=== PATIENT | male | born 1935 | race Caucasian/White ===

== ENCOUNTER 2019-09-06 10:59 | Day surgery (SDC) | payer MEDICARE ==
[~2019-09-06] VITALS: Ht 182.9 cm; Wt 84.4 kg
[~2019-09-06 10:59] MED LIST: ATOR40TA78 PO; FINA5TAB4 PO; GLUC-117 PO; KRIL500C PO; MULT-658 PO; NIAC500T4 PO; [UNRECOGNIZED DRUG - CODE] PO
[2019-09-06] MEDS ORDERED: DOCU100C33 PO (11:46)
[2019-09-06] MEDS ORDERED: METO50TA4 PO (11:46)
[2019-09-06] MEDS ORDERED: LIDOCAINE-MPF 1%, 2ML ONE (11:46)
[2019-09-06] MEDS ORDERED: MULT-658 PO (11:46)
[2019-09-06] MEDS ORDERED: OMEP40CA6 PO (11:46)
[2019-09-06] MEDS ORDERED: ASCO500T7 PO (11:46)
[2019-09-06] MEDS ORDERED: AMLO10TA8 PO (11:46)
[2019-09-06] MEDS ORDERED: ALLO100T30 PO (11:46)
[2019-09-06] MEDS ORDERED: ATOR40TA78 PO (11:46)
[2019-09-06] MEDS ORDERED: DULO30CA2 PO (11:46)
[2019-09-06] MEDS ORDERED: LOSA100T14 PO (11:46)
[2019-09-06] MEDS ORDERED: FINA5TAB4 PO (11:46)
[2019-09-06] MEDS ORDERED: MAGN400T36 PO (11:46)
[2019-09-06] MEDS ORDERED: GABA300C10 PO (11:46)
[2019-09-06 11:47] VITALS: BP 182/105
[2019-09-06] MEDS ORDERED: LACTATED RINGERS 1,000 ML IV SCH (11:53)
[2019-09-06] MEDS ORDERED: DULO20CA45 PO (12:02)
[2019-09-06] MEDS ORDERED: OXYC10TA47 PO (12:07)
[2019-09-06 12:15] VITALS: BP 176/91
[2019-09-06 12:30] LABS: ALBUMIN 3.6 g/dL (3.4-5.0); ANION GAP 8 mmol/L (5-15); CALCIUM 9.3 mg/dL (8.5-10.1); CHLORIDE 109 mmol/L (98-107)
[2019-09-06] MEDS ORDERED: LIDOCAINE-MPF 1%, 2ML INFIL ONE (12:30)
[2019-09-06 12:33] LABS: ALANINE AMINOTRANSFERASE 25 U/L (12-78); ALKALINE PHOSPHATASE 196 U/L (45-117); BILIRUBIN,TOTAL 0.5 mg/dL (0.2-1.0); CREATININE 2.87 mg/dL (0.7-1.3); TOTAL PROTEIN 7.4 g/dL (6.4-8.2)
[2019-09-06] MEDS ORDERED: LIDOCAINE 1%, 20ML ONE (12:57)
[2019-09-06] MEDS ORDERED: BUPIVACAINE/PF 0.5% ONE (12:57)
[2019-09-06] MEDS ORDERED: hydrALAzine 20 MG/ML, 1ML ONE (13:18)
== END 2019-09-06 16:20 | disposition home or self-care (01) ==
LOC: OUT 10:59
PROVIDERS: ATTEND Orthopaedic Surgery
DX: S91.104A Unspecified open wound of right lesser toe(s) without damage to nail, initial encounter (principal); L97.516 Non-pressure chronic ulcer of other part of right foot with bone involvement without evidence of necrosis; N18.9 Chronic kidney disease, unspecified; E78.5 Hyperlipidemia, unspecified; Z79.891 Long term (current) use of opiate analgesic; Z79.899 Other long term (current) drug therapy; Z88.5 Allergy status to narcotic agent; Z96.641 Presence of right artificial hip joint; X58.XXXA Exposure to other specified factors, initial encounter; Y93.89 Activity, other specified; Y92.89 Other specified places as the place of occurrence of the external cause; Y99.8 Other external cause status
CPT/HCPCS: 28820; 36415; 80053; 88305; 88311; 93005; J0360; J7120